=== PATIENT | female | born 1960 | race Caucasian/White ===

== ENCOUNTER 2018-03-31 09:05 | Outpatient (CLI) | payer MEDICARE, OTHER | END 2018-03-31 09:06 | disposition home or self-care (01) | LOC: RAD 09:05 | DX: Z12.31 Encounter for screening mammogram for malignant neoplasm of breast (principal) ==

== ENCOUNTER 2018-06-16 13:34 | Outpatient (CLI) | payer MEDICARE, OTHER | END 2018-06-16 13:35 | disposition home or self-care (01) | LOC: RAD 13:34 ==